=== PATIENT | female | born 1970 | race American Indian/Alaskan Native ===

== ENCOUNTER 2017-01-14 08:22 | Emergency (ER) | payer MEDICAID ==
[2017-01-14 08:48] VITALS: BP 114/65
--- NOTE | 2017-01-14 11:10 | Emergency Department Report ---
- General Chief Complaint: Upper Respiratory Infection Stated Complaint: BODY ACHES/FEVER Time Seen by Provider: 01/14/17 11:04 Source: patient Mode of arrival: Ambulatory Limitations: No Limitations - History of Present Illness Initial Comments: 46-year-old female past medical history smoker presents with complaint of 2 days of fever bodyaches chills sore throat congestion runny nose. 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 States cough is nonproductive. Awake alert and oriented 3 speaking in full sentences, no trismus no stridor no audible wheezing. Denies any recent travel, patient states she has had multiple sick contacts with similar symptoms including contacts with strep throat and flu positive patient's MD Complaint: fever, cough, sore throat Onset/Timin -: days(s) Severity: moderate Severity scale (0 -10): 6 Quality: aching Consistency: constant Improves With: nothing Context: sick contacts Associated Symptoms: fever, chills, myalgias, rhinorrhea - Related Data Previous Rx's Medication Instructions Recorded Last Taken Type HYDROcodone/APAP 5-325 [Colden 1 each PO Q6HR PRN #10 tablet 02/19/16 Unknown Rx 5/325] ALBUTEROL Inhaler [ProAir HFA 2 puff IH QID PRN #1 inhalation 09/17/16 Unknown Rx Inhaler] Azithromycin [Zithromax Z-CASSIA] 250 mg PO QDAY #6 tablet 09/17/16 Unknown Rx Ibuprofen [Motrin] 600 mg PO Q8H PRN #20 tablet 09/17/16 Unknown Rx guaiFENesin DM [Robitussin Dm] 10 ml PO Q6HR PRN #1 bottle 09/17/16 Unknown Rx predniSONE [Deltasone] 40 mg PO QDAY #10 tab 09/17/16 Unknown Rx ALBUTEROL Inhaler [ProAir HFA 2 puff IH QID PRN #1 inhalation 01/14/17 Unknown Rx Inhaler] Ibuprofen [Motrin] 600 mg PO Q8H PRN #25 tablet 01/14/17 Unknown Rx Phenylephrine/Dm/Acetaminop/GG 10 ml PO Q4H PRN #1 liquid 01/14/17 Unknown Rx [Mucinex Aqeo-Mnv-Aakdfitbbq Lq] Allergies Allergy/AdvReac Type Severity Reaction Status Date / Time No Known Allergies Allergy Verified 02/17/16 16:45 ED Review of Systems ROS: Stated complaint: BODY ACHES/FEVER Other details as noted in HPI ED Past Medical Hx - Past Medical History Previous Medical History?: No - Surgical History Past Surgical History?: No - Social History Smoking Status: Current Some Day Smoker Substance Use Type: None - Medications Home Medications: Home Medications Medication Instructions Recorded Confirmed Last Taken Type HYDROcodone/APAP 5-325 [Colden 1 each PO Q6HR PRN #10 tablet 02/19/16 Unknown Rx 5/325] ALBUTEROL Inhaler [ProAir HFA 2 puff IH QID PRN #1 inhalation 09/17/16 Unknown Rx Inhaler] Azithromycin [Zithromax Z-CASSIA] 250 mg PO QDAY #6 tablet 09/17/16 Unknown Rx Ibuprofen [Motrin] 600 mg PO Q8H PRN #20 tablet 09/17/16 Unknown Rx guaiFENesin DM [Robitussin Dm] 10 ml PO Q6HR PRN #1 bottle 09/17/16 Unknown Rx predniSONE [Deltasone] 40 mg PO QDAY #10 tab 09/17/16 Unknown Rx ALBUTEROL Inhaler [ProAir HFA 2 puff IH QID PRN #1 inhalation 01/14/17 Unknown Rx Inhaler] Ibuprofen [Motrin] 600 mg PO Q8H PRN #25 tablet 01/14/17 Unknown Rx Phenylephrine/Dm/Acetaminop/GG 10 ml PO Q4H PRN #1 liquid 01/14/17 Unknown Rx [Mucinex Ygoa-Uot-Tudgddxltt Lq] ED Physical Exam - General Limitations: No Limitations General appearance: alert, in no apparent distress - Head Head exam: Present: atraumatic, normocephalic - Eye Eye exam: Present: normal appearance, PERRL, EOMI - ENT ENT exam: Present: mucous membranes moist - Expanded ENT Exam Expanded Throat exam: Positive: tonsillar erythema (H and has visible tonsillar erythema and some exudates and left tonsillar pillar uvula is midline there are no signs of the [employer] oropharynx is patent otherwise), tonsillar exudate - Neck Neck exam: Present: normal inspection - Respiratory Respiratory exam: Present: normal lung sounds bilaterally. Absent: respiratory distress - Cardiovascular Cardiovascular Exam: Present: regular rate, normal rhythm. Absent: systolic murmur, diastolic murmur, rubs, gallop - GI/Abdominal GI/Abdominal exam: Present: soft, normal bowel sounds - Extremities Exam Extremities exam: Present: normal inspection - Back Exam Back exam: Present: normal inspection - Neurological Exam Neurological exam: Present: alert, oriented X3 - Psychiatric Psychiatric exam: Present: normal affect, normal mood - Skin Skin exam: Present: warm, dry, intact, normal color. Absent: rash ED Course Vital Signs 01/14/17 01/14/17 08:45 11:45 Temperature 98.9 F Pulse Rate 86 Respiratory 16 16 Rate Blood Pressure 114/65 O2 Sat by Pulse 100 Oximetry ED Medical Decision Making - Medical Decision Making A/P: Viral syndrome, acute bronchitis, influenza 1- Motrin 600 when necessary, throat lozenges, albuterol inhaler, mucinex 2- Influenza B positive, i d/w pt whether or not she wants to try taking tamiflu as it may or may not help her clincial course, pt elected not to 3- follow up with primary care doctor, I encouraged the patient to remain well- hydrated Critical care attestation.: If time is entered above; I have spent that time in minutes in the direct care of this critically ill patient, excluding procedure time. ED Disposition Clinical Impression: Influenza B Disposition: DISCHARGED TO HOME OR SELFCARE Is pt being admited?: No Does the pt Need Aspirin: No Condition: Stable Instructions: Influenza (ED), Viral Syndrome (ED) Prescriptions: ALBUTEROL Inhaler [ProAir HFA Inhaler] 2 puff IH QID PRN #1 inhalation PRN Reason: Shortness Of Breath Ibuprofen [Motrin] 600 mg PO Q8H PRN #25 tablet PRN Reason: Pain Phenylephrine/Dm/Acetaminop/GG [Mucinex Tlrf-Phu-Cugiqvntiy Lq] 10 ml PO Q4H PRN #1 liquid PRN Reason: Cough Referrals: BAIRON MANZANARES JR, MD [Staff Physician] - 3-5 Days [facility] [Outside] - 3-5 Days [facility] [Outside] - 3-5 Days Time of Disposition: 12:13
[2017-01-14] MEDS ORDERED: MOTRIN PO ONE (11:39)
== END 2017-01-14 12:22 | disposition home or self-care (01) ==
LOC: ED 08:22
DX: J11.1 Influenza due to unidentified influenza virus with other respiratory manifestations (principal); F17.200 Nicotine dependence, unspecified, uncomplicated
CPT/HCPCS: 87116; 87400; 87430; 99282

== ENCOUNTER 2019-08-25 15:41 | Emergency (ER) | payer SELFPAY ==
--- NOTE | 2019-08-25 16:54 | Event Note ---
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 Further treatment and workup at subsequent clinical providers discretion. Patient/guardian urged not to elope from the ED as their condition may be serious if not clinically assessed and managed. Initial orders include: cxr
[2019-08-25 16:56] VITALS: BP 130/67
[2019-08-25] MEDS ORDERED: ACETAMINOPHEN 500 MG TAB PO ONE (18:41)
[2019-08-25] MEDS ORDERED: IBUPROFEN 600 MG TAB PO ONE (18:41)
--- NOTE | 2019-08-25 20:32 | Emergency Department Report ---
- General Chief Complaint: Upper Respiratory Infection Stated Complaint: CHEST PAIN,FATIGUE Source: patient Mode of arrival: Ambulatory Limitations: No Limitations - History of Present Illness Initial Comments: Patient is a 49-year-old -[place] female with no past medical history who presents to the ED with complaint of acute onset persistent nasal and sinus congestion and diffuse body aches and pain for the last 3 days. Patient denies cough, dizziness, chest pain, shortness of breath, change in vision, abdominal pain, dysuria, sore throat, urinary frequency and urgency, fever, chills, or di arrhea, nausea and vomiting. MD Complaint: rhinorrhea, nasal congestion, sinus pain, other (diffuse body aches and pains) -: Sudden, days(s) (3) Severity: moderate Severity scale (0 -10): 4 Quality: aching Consistency: constant Improves With: nothing Worsens With: nothing Context: sick contacts Associated Symptoms: denies other symptoms, fever, chills, myalgias, headache, rhinorrhea, nasal congestion, sore throat, cough. denies: stiff neck, chest pain, shortness of breath, abdominal pain, nausea, vomiting, diarrhea, dysuria, rash, confusion, right sweats, weight loss, epistaxis, hoarseness, other Treatments Prior to Arrival: none - Related Data Previous Rx's Medication Instructions Recorded Last Taken Type HYDROcodone/APAP 5-325 [Harmony 1 each PO Q6HR PRN #10 tablet 02/19/16 Unknown Rx 5/325] ALBUTEROL Inhaler (OR & NICU) 2 puff IH QID PRN #1 inhalation 09/17/16 Unknown Rx [ProAir HFA Inhaler] Ibuprofen [Motrin] 600 mg PO Q8H PRN #20 tablet 09/17/16 Unknown Rx guaiFENesin DM [Robitussin Dm] 10 ml PO Q6HR PRN #1 bottle 09/17/16 Unknown Rx ALBUTEROL Inhaler (OR & NICU) 2 puff IH QID PRN #1 inhalation 01/14/17 Unknown Rx [ProAir HFA Inhaler] Phenylephrine/Dm/Acetaminop/GG 10 ml PO Q4H PRN #1 liquid 01/14/17 Unknown Rx [Mucinex Uzms-Xrn-Rxvsuoyqqt Lq] Azithromycin [Zithromax Z-CASSIA] 250 mg PO QDAY #6 tablet 08/25/19 Unknown Rx Ibuprofen [Motrin 600 MG tab] 600 mg PO Q8H PRN #25 tablet 08/25/19 Unknown Rx Oseltamivir [Tamiflu] 75 mg PO Q12H #10 cap 08/25/19 Unknown Rx predniSONE [Deltasone] 40 mg PO QDAY #10 tab 08/25/19 Unknown Rx Allergies Allergy/AdvReac Type Severity Reaction Status Date / Time No Known Allergies Allergy Verified 08/25/19 15:44 ED Review of Systems ROS: Stated complaint: CHEST PAIN,FATIGUE Other details as noted in HPI Constitutional: denies: chills, fever Eyes: denies: eye pain, eye discharge, vision change ENT: throat pain, congestion. denies: ear pain Respiratory: denies: cough, shortness of breath, SOB with exertion, SOB at rest, wheezing Cardiovascular: denies: chest pain, palpitations Endocrine: no symptoms reported. denies: excessive sweating, flushing, intolerance to cold, increased hunger, increased urine, unexplained weight loss Gastrointestinal: denies: abdominal pain, nausea, diarrhea Genitourinary: denies: urgency, dysuria, discharge Musculoskeletal: arthralgia, myalgia Skin: denies: rash, lesions Neurological: headache. denies: weakness, paresthesias Psychiatric: denies: anxiety, depression Hematological/Lymphatic: denies: easy bleeding, easy bruising ED Past Medical Hx - Past Medical History Previous Medical History?: No - Surgical History Past Surgical History?: No - Social History Smoking Status: Current Every Day Smoker Substance Use Type: Alcohol, Marijuana - Medications Home Medications: Home Medications Medication Instructions Recorded Confirmed Last Taken Type HYDROcodone/APAP 5-325 [Harmony 1 each PO Q6HR PRN #10 tablet 02/19/16 Unknown Rx 5/325] ALBUTEROL Inhaler (OR & NICU) 2 puff IH QID PRN #1 inhalation 09/17/16 Unknown Rx [ProAir HFA Inhaler] Ibuprofen [Motrin] 600 mg PO Q8H PRN #20 tablet 09/17/16 Unknown Rx guaiFENesin DM [Robitussin Dm] 10 ml PO Q6HR PRN #1 bottle 09/17/16 Unknown Rx ALBUTEROL Inhaler (OR & NICU) 2 puff IH QID PRN #1 inhalation 01/14/17 Unknown Rx [ProAir HFA Inhaler] Phenylephrine/Dm/Acetaminop/GG 10 ml PO Q4H PRN #1 liquid 01/14/17 Unknown Rx [Mucinex Tuqj-Tgb-Ogdiovpskh Lq] Azithromycin [Zithromax Z-CASSIA] 250 mg PO QDAY #6 tablet 08/25/19 Unknown Rx Ibuprofen [Motrin 600 MG tab] 600 mg PO Q8H PRN #25 tablet 08/25/19 Unknown Rx Oseltamivir [Tamiflu] 75 mg PO Q12H #10 cap 08/25/19 Unknown Rx predniSONE [Deltasone] 40 mg PO QDAY #10 tab 08/25/19 Unknown Rx ED Physical Exam - General Limitations: No Limitations General appearance: alert, in no apparent distress - Head Head exam: Present: atraumatic, normocephalic, normal inspection - Eye Eye exam: Present: normal appearance, PERRL, EOMI Pupils: Present: normal accommodation - ENT ENT exam: Present: normal orophraynx, mucous membranes moist, TM's normal bilaterally, normal external ear exam, other (grossly congested nasal passages; palpable bilateral maxillary sinus tenderness) - Neck Neck exam: Present: normal inspection, full ROM - Respiratory Respiratory exam: Present: normal lung sounds bilaterally. Absent: respiratory distress, wheezes, rales, rhonchi, chest wall tenderness, decreased breath sounds, prolonged expiratory - Cardiovascular Cardiovascular Exam: Present: regular rate, normal rhythm, normal heart sounds. Absent: systolic murmur, diastolic murmur, rubs, gallop - GI/Abdominal GI/Abdominal exam: Present: soft, normal bowel sounds. Absent: tenderness, guarding, rebound, hyperactive bowel sounds, hypoactive bowel sounds, bruit - Extremities Exam Extremities exam: Present: normal inspection, full ROM, normal capillary refill - Back Exam Back exam: Present: normal inspection, full ROM. Absent: tenderness, CVA tenderness (L), muscle spasm, vertebral tenderness - Neurological Exam Neurological exam: Present: alert, oriented X3, CN II-XII intact, normal gait, reflexes normal - Psychiatric Psychiatric exam: Present: normal affect, normal mood - Skin Skin exam: Present: warm, dry, intact, normal color. Absent: rash ED Course Vital Signs 08/25/19 16:53 Temperature 99.5 F Pulse Rate 83 Respiratory 18 Rate Blood Pressure 130/67 O2 Sat by Pulse 95 Oximetry - Reevaluation(s) Reevaluation #1: 08/25/19 20:37 Patient is alert and oriented 3 and is not in any distress. Patient was treated for pain in the ED. Patient was simply because discharged home on medications for upper respiratory infection and flu. Patient is advised to drink plenty of fluids, take medications and follow up with her primary care physician in 5-7 days for reevaluation. Patient is advised to return to the ED immediately if symptoms get worse. ED Medical Decision Making - Medical Decision Making This is a 49-year-old female presented to the ED with flulike symptoms for 3 days. In the ED, patient is alert and oriented 3 and is not in any distress. Patient was treated for pain in the ED. Patient was simply because discharged home on medications for upper respiratory infection and flu. Patient is advised to drink plenty of fluids, take medications and follow up with her primary care physician in 5-7 days for reevaluation. Patient is advised to return to the ED immediately if symptoms get worse. - Differential Diagnosis Influenza; Sinusitis; URI Critical care attestation.: If time is entered above; I have spent that time in minutes in the direct care of this critically ill patient, excluding procedure time. ED Disposition Clinical Impression: Acute upper respiratory infection, Flu-like symptoms Acute frontal sinusitis Qualifiers: Recurrence: non-recurrent Qualified Code(s): J01.10 - Acute frontal sinusitis, unspecified Disposition: DC- TO HOME OR SELFCARE Is pt being admited?: No Does the pt Need Aspirin: No Condition: Stable Instructions: Influenza (ED), Acute Bacterial Rhinosinusitis (ED), Upper Respiratory Infection (ED) Additional Instructions: Take medication or food, drink plenty fluids and follow-up with your primary care physician in 7-10 days for reevaluation. Return to the ED immediately if symptoms get worse. Prescriptions: predniSONE [Deltasone] 40 mg PO QDAY #10 tab Ibuprofen [Motrin 600 MG tab] 600 mg PO Q8H PRN #25 tablet PRN Reason: Pain Oseltamivir [Tamiflu] 75 mg PO Q12H #10 cap Azithromycin [Zithromax Z-CASSIA] 250 mg PO QDAY #6 tablet Referrals: PRIMARY CARE, [Primary Care Provider] - 3-5 Days Time of Disposition: 20:30 Print Language: SETS[place]
== END 2019-08-25 21:09 | disposition home or self-care (01) ==
LOC: ED 15:41
DX: J06.9 Acute upper respiratory infection, unspecified (principal); J01.10 Acute frontal sinusitis, unspecified; F17.200 Nicotine dependence, unspecified, uncomplicated; F12.10 Cannabis abuse, uncomplicated
CPT/HCPCS: 99282

== ENCOUNTER 2020-08-09 07:46 | Emergency (ER) | payer MEDICAID ==
[2020-08-09 07:56] VITALS: BP 124/79
--- NOTE | 2020-08-09 09:14 | Emergency Department Report ---
ED ENT HPI - General Chief complaint: Sore Throat Stated complaint: EAR/THROAT/BODY/ CHEST Time Seen by Provider: 08/09/20 09:02 Source: patient Mode of arrival: Ambulatory Limitations: No Limitations - History of Present Illness Initial comments: Patient is a 50-year-old female presents emergency room with complaints of bilateral ear pain that began this morning. She has associated fever and reports that she took her temperature this morning and it was 100.1. She states that she also has generalized body aches, sore throat, nausea. She denies any ear drainage, vomiting, diarrhea, shortness of breath, abdominal pain, cough, rhinorrhea. She has a past medical history of arthritis. No allergies to medications. She states that she went through menopause and has not had a menstrual cycle since 2017. - Related Data Previous Rx's Medication Instructions Recorded Last Taken Type HYDROcodone/APAP 5-325 [[place] 1 each PO Q6HR PRN #10 tablet 02/19/16 Unknown Rx 5/325] Albuterol Mdi (or & Nicu Only) 2 puff IH QID PRN #1 inhalation 09/17/16 Unknown Rx [ProAir HFA Inhaler] Ibuprofen [Motrin] 600 mg PO Q8H PRN #20 tablet 09/17/16 Unknown Rx guaiFENesin DM [Robitussin Dm] 10 ml PO Q6HR PRN #1 bottle 09/17/16 Unknown Rx Albuterol Mdi (or & Nicu Only) 2 puff IH QID PRN #1 inhalation 01/14/17 Unknown Rx [ProAir HFA Inhaler] Phenylephrine/Dm/Acetaminop/GG 10 ml PO Q4H PRN #1 liquid 01/14/17 Unknown Rx [Mucinex Qhvq-Oij-Rftuujxldg Lq] Azithromycin [Zithromax Z-CASSIA] 250 mg PO QDAY #6 tablet 08/25/19 Unknown Rx Ibuprofen [Motrin 600 MG tab] 600 mg PO Q8H PRN #25 tablet 08/25/19 Unknown Rx Oseltamivir [Tamiflu] 75 mg PO Q12H #10 cap 08/25/19 Unknown Rx predniSONE [Deltasone] 40 mg PO QDAY #10 tab 08/25/19 Unknown Rx Amoxicillin/Potassium Clav 1 each PO BID 10 Days #20 tablet 08/09/20 Unknown Rx [Augmentin 875-125 Tablet] Allergies Allergy/AdvReac Type Severity Reaction Status Date / Time No Known Allergies Allergy Verified 04/26/20 16:50 ED Dental HPI - General Chief complaint: Sore Throat Stated complaint: EAR/THROAT/BODY/ CHEST Time Seen by Provider: 08/09/20 09:02 Source: patient Mode of arrival: Ambulatory Limitations: No Limitations - Related Data Previous Rx's Medication Instructions Recorded Last Taken Type HYDROcodone/APAP 5-325 [[place] 1 each PO Q6HR PRN #10 tablet 02/19/16 Unknown Rx 5/325] Albuterol Mdi (or & Nicu Only) 2 puff IH QID PRN #1 inhalation 09/17/16 Unknown Rx [ProAir HFA Inhaler] Ibuprofen [Motrin] 600 mg PO Q8H PRN #20 tablet 09/17/16 Unknown Rx guaiFENesin DM [Robitussin Dm] 10 ml PO Q6HR PRN #1 bottle 09/17/16 Unknown Rx Albuterol Mdi (or & Nicu Only) 2 puff IH QID PRN #1 inhalation 01/14/17 Unknown Rx [ProAir HFA Inhaler] Phenylephrine/Dm/Acetaminop/GG 10 ml PO Q4H PRN #1 liquid 01/14/17 Unknown Rx [Mucinex Roda-Xro-Hlipvfzrmr Lq] Azithromycin [Zithromax Z-CASSIA] 250 mg PO QDAY #6 tablet 08/25/19 Unknown Rx Ibuprofen [Motrin 600 MG tab] 600 mg PO Q8H PRN #25 tablet 08/25/19 Unknown Rx Oseltamivir [Tamiflu] 75 mg PO Q12H #10 cap 08/25/19 Unknown Rx predniSONE [Deltasone] 40 mg PO QDAY #10 tab 08/25/19 Unknown Rx Amoxicillin/Potassium Clav 1 each PO BID 10 Days #20 tablet 08/09/20 Unknown Rx [Augmentin 875-125 Tablet] Allergies Allergy/AdvReac Type Severity Reaction Status Date / Time No Known Allergies Allergy Verified 04/26/20 16:50 ED Review of Systems ROS: Stated complaint: EAR/THROAT/BODY/ CHEST Other details as noted in HPI Comment: All other systems reviewed and negative ED Past Medical Hx - Past Medical History Previous Medical History?: Yes Hx Arthritis: Yes - Surgical History Past Surgical History?: No - Social History Smoking Status: Never Smoker Substance Use Type: None - Medications Home Medications: Home Medications Medication Instructions Recorded Confirmed Last Taken Type HYDROcodone/APAP 5-325 [[place] 1 each PO Q6HR PRN #10 tablet 02/19/16 Unknown Rx 5/325] Albuterol Mdi (or & Nicu Only) 2 puff IH QID PRN #1 inhalation 09/17/16 Unknown Rx [ProAir HFA Inhaler] Ibuprofen [Motrin] 600 mg PO Q8H PRN #20 tablet 09/17/16 Unknown Rx guaiFENesin DM [Robitussin Dm] 10 ml PO Q6HR PRN #1 bottle 09/17/16 Unknown Rx Albuterol Mdi (or & Nicu Only) 2 puff IH QID PRN #1 inhalation 01/14/17 Unknown Rx [ProAir HFA Inhaler] Phenylephrine/Dm/Acetaminop/GG 10 ml PO Q4H PRN #1 liquid 01/14/17 Unknown Rx [Mucinex Dpwc-Eis-Kwcfxfpfyw Lq] Azithromycin [Zithromax Z-CASSIA] 250 mg PO QDAY #6 tablet 08/25/19 Unknown Rx Ibuprofen [Motrin 600 MG tab] 600 mg PO Q8H PRN #25 tablet 08/25/19 Unknown Rx Oseltamivir [Tamiflu] 75 mg PO Q12H #10 cap 08/25/19 Unknown Rx predniSONE [Deltasone] 40 mg PO QDAY #10 tab 08/25/19 Unknown Rx Amoxicillin/Potassium Clav 1 each PO BID 10 Days #20 tablet 08/09/20 Unknown Rx [Augmentin 875-125 Tablet] ED Physical Exam - General Limitations: No Limitations General appearance: alert, in no apparent distress - Head Head exam: Present: atraumatic, normocephalic - Eye Eye exam: Present: normal appearance - ENT ENT exam: Present: normal orophraynx, mucous membranes moist, other (left TM and canal are normal, right canal is normal, right TM is erythematous with purulence behind the TM) - Neck Neck exam: Present: full ROM. Absent: meningismus - Respiratory Respiratory exam: Present: normal lung sounds bilaterally. Absent: respiratory distress, wheezes, rales, rhonchi, stridor, chest wall tenderness, accessory muscle use, decreased breath sounds, prolonged expiratory - Cardiovascular Cardiovascular Exam: Present: regular rate, normal rhythm, normal heart sounds. Absent: systolic murmur, diastolic murmur, rubs, gallop - Neurological Exam Neurological exam: Present: alert, oriented X3 - Psychiatric Psychiatric exam: Present: normal affect, normal mood - Skin Skin exam: Present: warm, dry, intact ED Course Vital Signs 08/09/20 07:51 Temperature 97.9 F Pulse Rate 86 Respiratory 18 Rate Blood Pressure 124/79 O2 Sat by Pulse 96 Oximetry ED Medical Decision Making - Medical Decision Making Patient is a 50-year-old female presents emergency room with complaints of bilateral ear pain that began this morning. She has associated fever and reports that she took her temperature this morning and it was 100.1. She states that she also has generalized body aches, sore throat, nausea. She denies any ear drainage, vomiting, diarrhea, shortness of breath, abdominal pain, cough, rhinorrhea. She has a past medical history of arthritis. No allergies to medications. She states that she went through menopause and has not had a menstrual cycle since 2017. vitals are normal. on exam: left TM and canal are normal, right canal is normal, right TM is erythematous with purulence behind the TM, normal posterior oropharynx, no tonsillar hypertrophy or exudates, uvula is midline, no uvular edema or deviation, breath sounds are clear bilaterally, no wheezing, no rales, no rhonchi, no stridor. Examination appears consistent with right-sided otitis media without perforation. Patient is presenting with the symptoms during COVID-19 pandemic, discussed the possibility of COVID-19 with patient, discussed outpatient testing, discussed strict return precautions, discussed self quarantine. Patient given prescription for Augmentin for otitis media. Advised patient Please take medication as prescribed. Please increase your fluid intake over the next several days. May take Tylenol as needed for fever or body aches. May take rgza-wsg-iwkjjzm cold symptom relief medication such as Mucinex or TheraFlu. Follow-up with a primary care doctor for reexamination. Return to emergency room immediately for any new or worsening symptoms including but not limited to difficulty breathing, shortness of breath, severe chest pain, unable to tolerate by mouth intake, etc. Please self quarantine for 10 days from the onset of your symptoms. Please do not go out in public. If you are around others at home please wear a mask. If you need to cough or sneeze please do so in a napkin and immediately throw it away and immediately wash your hands. Wash your hands frequently. Wipe everything down. Recommend for you to get COVID-19 testing, may have this done at primary care doctor, health department, [facility]. - Differential Diagnosis Otitis media, otitis externa, tonsillitis, pharyngitis, viral, COVID19 Critical care attestation.: If time is entered above; I have spent that time in minutes in the direct care of this critically ill patient, excluding procedure time. ED Disposition Clinical Impression: Otitis media Qualifiers: Otitis media type: suppurative Chronicity: acute Laterality: right Recurrence: non-recurrent Spontaneous tympanic membrane rupture: without spontaneous rupture Qualified Code(s): H66.001 - Acute suppurative otitis media without spontaneous rupture of ear drum, right ear Disposition: - TO HOME OR SELFCARE Is pt being admited?: No Does the pt Need Aspirin: No Condition: Stable Instructions: COVID-19, Otitis Media (ED) Additional Instructions: Please take medication as prescribed. Please increase your fluid intake over the next several days. May take Tylenol as needed for fever or body aches. May take ocun-iog-tpldvut cold symptom relief medication such as Mucinex or TheraFlu. Follow-up with a primary care doctor for reexamination. Return to emergency room immediately for any new or worsening symptoms including but not limited to difficulty breathing, shortness of breath, severe chest pain, unable to tolerate by mouth intake, etc. Please self quarantine for 10 days from the onset of your symptoms. Please do not go out in public. If you are around others at home please wear a mask. If you need to cough or sneeze please do so in a napkin and immediately throw it away and immediately wash your hands. Wash your hands frequently. Wipe everything down. Recommend for you to get COVID-19 testing, may have this done at primary care doctor, health department, [facility] testing center. Prescriptions: Amoxicillin/Potassium Clav [Augmentin 875-125 Tablet] 1 each PO BID 10 Days #20 tablet Referrals: SEA SHARMA MD [Primary Care Provider] - 2-3 Days BONNIE MARTINEZ MD [Staff Physician] - 2-3 Days [facility] [Provider Group] - 2-3 Days Time of Disposition: 09:12 Print Language: FRISIAN
== END 2020-08-09 09:33 | disposition home or self-care (01) ==
LOC: ED 07:46
DX: H66.93 Otitis media, unspecified, bilateral (principal); M19.90 Unspecified osteoarthritis, unspecified site; Z79.899 Other long term (current) drug therapy
CPT/HCPCS: 99281

== ENCOUNTER 2021-10-07 06:34 | Emergency (ER) | payer MEDICAID ==
[2021-10-07 07:33] VITALS: BP 130/73
--- NOTE | 2021-10-07 07:39 | Emergency Department Report ---
ED Lower Extremity HPI - General Chief Complaint: Extremity Injury, Lower Stated Complaint: POSSIBLE SPRAINED LEFT ANKLE Time Seen by Provider: 10/07/21 07:04 Source: patient Mode of arrival: Ambulatory Limitations: No Limitations - History of Present Illness Initial Comments: 51-year-old -Prydeinig female presents to the emergency room for left a nkle injury while at work. Patient states that this happened on Sunday and she was seen by formerly named [facility] urgent care. Patient states she had negative x-rays. She states that they placed her on ice pain medication. Patient states that while at work she is weightbearing and it exacerbates her pain to a 10. She reports that the pain medicine does not help once he gets to 10. MD Complaint: ankle injury Onset/Timin -: days(s) Injury: Ankle: Left Type of Injury: inversion, eversion Place: work Severity scale (0 -10): 9 Improves With: rest Worsens With: weight bearing Context: walking - Related Data Previous Rx's Medication Instructions Recorded Last Taken Type HYDROcodone/APAP 5-325 [[place] 1 each PO Q6HR PRN #10 tablet 02/19/16 Unknown Rx 5/325] Albuterol Mdi (or & Nicu Only) 2 puff IH QID PRN #1 inhalation 09/17/16 Unknown Rx [ProAir HFA Inhaler] Ibuprofen [Motrin] 600 mg PO Q8H PRN #20 tablet 09/17/16 Unknown Rx guaiFENesin DM [Robitussin Dm] 10 ml PO Q6HR PRN #1 bottle 09/17/16 Unknown Rx Albuterol Mdi (or & Nicu Only) 2 puff IH QID PRN #1 inhalation 01/14/17 Unknown Rx [ProAir HFA Inhaler] Phenylephrine/Dm/Acetaminop/GG 10 ml PO Q4H PRN #1 liquid 01/14/17 Unknown Rx [Mucinex Lisl-Yen-Dwcvxxrerz Lq] Azithromycin [Zithromax Z-CASSIA] 250 mg PO QDAY #6 tablet 08/25/19 Unknown Rx Ibuprofen [Motrin 600 MG tab] 600 mg PO Q8H PRN #25 tablet 08/25/19 Unknown Rx Oseltamivir [Tamiflu] 75 mg PO Q12H #10 cap 08/25/19 Unknown Rx predniSONE [Deltasone] 40 mg PO QDAY #10 tab 08/25/19 Unknown Rx Amoxicillin/Potassium Clav 1 each PO BID 10 Days #20 tablet 08/09/20 Unknown Rx [Augmentin 875-125 Tablet] Allergies Allergy/AdvReac Type Severity Reaction Status Date / Time No Known Allergies Allergy Verified 04/26/20 16:50 ED Review of Systems ROS: Stated complaint: POSSIBLE SPRAINED LEFT ANKLE Other details as noted in HPI Comment: All other systems reviewed and negative ED Past Medical Hx - Past Medical History Previous Medical History?: Yes Hx Arthritis: Yes - Surgical History Past Surgical History?: No - Social History Smoking Status: Never Smoker Substance Use Type: None - Medications Home Medications: Home Medications Medication Instructions Recorded Confirmed Last Taken Type HYDROcodone/APAP 5-325 [[place] 1 each PO Q6HR PRN #10 tablet 02/19/16 Unknown Rx 5/325] Albuterol Mdi (or & Nicu Only) 2 puff IH QID PRN #1 inhalation 09/17/16 Unknown Rx [ProAir HFA Inhaler] Ibuprofen [Motrin] 600 mg PO Q8H PRN #20 tablet 09/17/16 Unknown Rx guaiFENesin DM [Robitussin Dm] 10 ml PO Q6HR PRN #1 bottle 09/17/16 Unknown Rx Albuterol Mdi (or & Nicu Only) 2 puff IH QID PRN #1 inhalation 01/14/17 Unknown Rx [ProAir HFA Inhaler] Phenylephrine/Dm/Acetaminop/GG 10 ml PO Q4H PRN #1 liquid 01/14/17 Unknown Rx [Mucinex Ynac-Nym-Hqsxulqgtu Lq] Azithromycin [Zithromax Z-CASSIA] 250 mg PO QDAY #6 tablet 08/25/19 Unknown Rx Ibuprofen [Motrin 600 MG tab] 600 mg PO Q8H PRN #25 tablet 08/25/19 Unknown Rx Oseltamivir [Tamiflu] 75 mg PO Q12H #10 cap 08/25/19 Unknown Rx predniSONE [Deltasone] 40 mg PO QDAY #10 tab 08/25/19 Unknown Rx Amoxicillin/Potassium Clav 1 each PO BID 10 Days #20 tablet 08/09/20 Unknown Rx [Augmentin 875-125 Tablet] ED Physical Exam - General Limitations: No Limitations General appearance: alert, in no apparent distress - Head Head exam: Present: atraumatic, normocephalic - Eye Eye exam: Present: normal appearance, PERRL, EOMI - ENT ENT exam: Present: normal external ear exam - Neck Neck exam: Present: normal inspection, full ROM - Respiratory Respiratory exam: Absent: respiratory distress, accessory muscle use - Cardiovascular Cardiovascular Exam: Present: regular rate - Expanded Lower Extremity Exam Left Hip exam: Present: normal inspection, full ROM Upper Leg exam: Present: normal inspection, full ROM Knee exam: Present: normal inspection, full ROM Lower Leg exam: Present: normal inspection, full ROM Ankle exam: Present: full ROM, tenderness, swelling - Back Exam Back exam: Present: normal inspection - Neurological Exam Neurological exam: Present: alert, oriented X3 - Psychiatric Psychiatric exam: Present: normal affect, normal mood - Skin Skin exam: Present: warm, dry, intact, normal color. Absent: rash ED Lower Extremity MDM - Medical Decision Making 51-year-old -Prydeinig female presents to the emergency room for left ankle injury while at work. Patient states that this happened on Sunday and she was seen by formerly named [facility] urgent care. Patient states she had negative x-rays. She states that they placed her on ice pain medication. Patient states that while at work she is weightbearing and it exacerbates her pain to a 10. She reports that the pain medicine does not help once he gets to 10. Encourage patient to continue with her pain medication and therapy. Discussed with patient she needs to rest her ankle more elevate ice and avoid weightbearing. Referral to Dr. Wilde. Critical care attestation.: If time is entered above; I have spent that time in minutes in the direct care of this critically ill patient, excluding procedure time. ED Disposition Clinical Impression: Left ankle pain Disposition: HOME / SELF CARE / HOMELESS Is pt being admited?: No Does the pt Need Aspirin: No Condition: Stable Instructions: How to Use Cold Therapy, Wsxz-[id number], Joint Pain, Cgac-xy-Pilb Additional Instructions: Please take medication that was prescribed to you by your other doctor. Ice elevate compress. No weightbearing or standing or walking for the next 4 days. Is very important to follow-up with an orthopedic provider. Referrals: SEA SHARMA MD [Primary Care Provider] - 3-5 Days AMA WILDE MD [Staff Physician] - 3-5 Days Forms: Work/School Release Form(ED) Time of Disposition: 07:34
== END 2021-10-07 08:20 | disposition home or self-care (01) ==
LOC: ED 06:34
DX: M25.572 Pain in left ankle and joints of left foot (principal)
CPT/HCPCS: 99282

== ENCOUNTER 2022-03-31 11:26 | Outpatient (CLI) | payer OTHER ==
--- NOTE | 2022-03-31 13:33 | XRay Report ---
LEFT SHOULDER 1 VIEW INDICATION / CLINICAL INFORMATION: Left shoulder pain. Disability adjudication. COMPARISON: None available. FINDINGS: BONES / JOINT(S): There are moderately advanced degenerative changes involving the acromioclavicular joint. The glenohumeral joint is unremarkable. There is no evidence of fracture, subluxation or destr uctive lesion. SOFT TISSUES: No significant abnormality. ADDITIONAL FINDINGS: The visualized left lung is clear. Signer Name: Dinh Covarrubias MD Signed: 03/31/2022 1:29 PM Workstation Name: [id number]
== END 2022-03-31 11:27 | disposition home or self-care (01) ==
LOC: XRAY 11:26
PROVIDERS: ATTEND Internal Medicine
DX: M19.012 Primary osteoarthritis, left shoulder (principal)

== ENCOUNTER 2022-06-19 18:13 | Emergency (ER) | payer MEDICAID, OTHER | END 2022-06-20 02:49 | disposition left against medical advice (07) | LOC: ED 18:13 | DX: R50.9 Fever, unspecified (principal); Z53.21 Procedure and treatment not carried out due to patient leaving prior to being seen by health care provider ==